=== PATIENT | male | born 1975 | race Caucasian/White ===

== ENCOUNTER 2017-03-24 21:45 | Inpatient (IN) | payer MEDICAID ==
[~2017-03-24] VITALS: Ht 175.3 cm; Wt 107.5 kg
[~2017-03-24 21:45] MED LIST: LORT7.5T3 PO; OMEP20TA OR; RANI150UDC PO
[2017-03-24 21:49] VITALS: BP 213/116; PULSE 109; RESP 20; TEMP 101.6; O2SAT 99
[2017-03-24] MEDS ORDERED: ONDANSETRON HCL 4 MG/2 ML VIAL IV PUSH ONE (22:15)
[2017-03-24] MEDS ORDERED: SODIUM CHLOR 0.9% 1000 ML INJ 1,000 ML IV ONE (22:15)
[2017-03-24] MEDS ORDERED: KETOROLAC TROMETHAMINE 30 MG/ML (IVP) VIAL IV PUSH ONE (22:15)
--- NOTE | 2017-03-24 22:57 | RADRPT ---
EXAM DATE/TIME: 03/24/2017 22:35 [facility] COMPARISON: No previous studies available for comparison. INDICATIONS : Patient complains of cough and shortness of breath. MEDICAL HISTORY : None. SURGICAL HISTORY : None. ENCOUNTER: Initial ACUITY: 3 days PAIN SCORE: 0/10 LOCATION: chest FINDINGS: The lungs are symmetrically aerated. There is a 6 mm noncalcified nodule mid right lung. The heart is normal in size. Both hemidiaphragms are well delineated. CONCLUSION: 1. No infiltrate seen. 2. 6 mm noncalcified nodule in the mid right lung. Recommend further characterization with noncontra st CT. Nima Herrmann MD on March 24, 2017 at 22:54 Board Certified Radiologist. This report was verified electronically.
[2017-03-24 23:06] LABS: AUTOMATED NEUTROPHIL # 8.7 TH/MM3 (1.8-7.7); BASOPHIL % 0.2 % (0.0-2.0); HEMATOCRIT 40.9 % (39.0-51.0); LYMPH % 7.2 % (9.0-44.0); LYMPHOCYTE # 0.8 TH/MM3 (1.0-4.8); MEAN CELL VOLUME 82.4 FL (80.0-100.0); MEAN CORPUSCULAR HEMOGLOBIN 29.6 PG (27.0-34.0); MONO % 10.7 % (0.0-8.0); NEUT % 81.9 % (16.0-70.0); PLATELET COUNT 198 TH/MM3 (150-450); RED BLOOD COUNT 4.97 MIL/MM3 (4.50-5.90); RED CELL DISTRIBUTION WIDTH 13.3 % (11.6-17.2); WHITE BLOOD COUNT 10.6 TH/MM3 (4.0-11.0)
[2017-03-24 23:22] LABS: HEMO FLAGS AUTO DIFF
[2017-03-24 23:39] LABS: ALKALINE PHOSPHATASE 75 U/L (45-117); ALT (GPT) 54 U/L (12-78); TOTAL BILIRUBIN ADULT 1.4 MG/DL (0.2-1.0)
[2017-03-25] VITALS (13 sets, daily range): BP systolic 136–186; BP diastolic 82–105; PULSE 82–99; RESP 16–18; TEMP 99.1–101.9; O2SAT 94–99
--- NOTE | 2017-03-25 00:20 | RADRPT ---
EXAM DATE/TIME: 03/24/2017 23:39 [facility] COMPARISON: CHEST PA & LAT, March 24, 2017, 22:35. INDICATIONS : Patient with cough and shortness of breath and abnormal chest x-ray exam demonstrating a 6 mm no ncalcified nodule in the right midlung.. RADIATION DOSE: 8.60 CTDIvol (mGy) MEDICAL HISTORY : None SURGICAL HISTORY : None. ENCOUNTER: Initial ACUITY: 1 day PAIN SCALE: 0/10 LOCATION: Right chest TECHNIQUE: Volumetric scanning of the chest was performed. Using automated exposure control and adjustment of t he mA and/or kV according to patient size, radiation dose was kept as low as reasonably achievable to obtain optimal diagnostic quality images. DICOM format image data is available electronically for r eview and comparison. Follow-up recommendations for detected pulmonary nodules are based at a minimum on nodule size and pa tient risk factors according to Fleischner Society Guidelines. FINDINGS: LUNGS: There is no consolidation or pneumothorax. No concerning pulmonary nodule is visualized. The nodular density in the right lung seen on the plain film exam corresponds to a calcified granuloma in the ford perior segment of the right lower lobe. This measures approximately 6 mm in greatest diameter. There are no noncalcified nodules or masses. PLEURAE: There is no pleural thickening or pleural effusion. MEDIASTINUM: The heart and great vessels demonstrate no acute abnormality. There is no mediastinal or hilar lymph adenopathy. There are calcified right hilar lymph nodes. AXILLAE: Within normal limits. No lymphadenopathy. MUSCULOSKELETAL: Within normal limits for patient age. MISCELLANEOUS: The visualized upper abdominal organs demonstrate no acute abnormality. 2 subtle gallstones are noted . CONCLUSION: 1. The pulmonary nodules seen on the chest plain film corresponds to calcified granuloma. 2. No confluent infiltrates or effusions. 3. Cholelithiasis. Yoel Burns MD on March 25, 2017 at 0:15 Board Certified Radiologist. This report was verified electronically.
[2017-03-25 00:36] LABS: SCAN/DIFF AUTO DIFF CONFIRMED
[2017-03-25] MEDS ORDERED: CLINDAMYCIN 600 MG PREMIX 50 ML IV ONE (00:45)
[2017-03-25 00:50] LABS: BLOOD UREA NITROGEN 15 MG/DL (7-18); GLOMERULAR FILTRATION RATE 64 ML/MIN (>89)
[2017-03-25 00:51] LABS: ANION GAP 10 MEQ/L (5-15); AST (GOT) 61 U/L (15-37); BICARBONATE 23.2 MEQ/L (21.0-32.0); CHLORIDE 101 MEQ/L (98-107); POTASSIUM 3.1 MEQ/L (3.5-5.1); SODIUM (NA) 134 MEQ/L (136-145)
[2017-03-25] MEDS ORDERED: ACETAMINOPHEN 325 MG TAB PO ONE (01:30)
[2017-03-25] MEDS ORDERED: SODIUM CHLOR 0.9% 1000 ML INJ 1,000 ML IV ONE (01:30)
[2017-03-25] MEDS ORDERED: POTASSIUM CHLORIDE 10 MEQ CONTROLLED RELEASE TAB PO ONE (02:15)
--- NOTE | 2017-03-25 03:42 | PD ---
HPI Chief Complaint: GI Complaint Time Seen by Provider: 21:57 Travel History International Travel<30 days: No Contact w/Intl Traveler<30days: No Traveled to known affect area: No History of Present Illness HPI is a 41-year-old male comes in complaining of fevers, body aches, nausea and vomiting. He says this is been going on for the past few days. He also noticed that area of his leg is become red with streaks of redness of his leg. He says he cut his right leg while working on a car last week, and then reinjured it a few days later. He has not taken anything at home for his symptoms. He denies any cough or congestion. He denies any chest pain. He denies any abdominal pain. [facility] Past Medical History Medical History: Denies Significant Hx Tetanus Vaccination: > 5 Years Past Surgical History Other Surgery: Yes (NASAL POLYPS REMOVED) Social History Alcohol Use: Yes (RARE) Tobacco Use: No Substance Use: No Allergies-Medications (Allergen,Severity, Reaction): Coded Allergies: No Known Allergies (Unverified Allergy, Unknown, 03/25/17) Reported Meds & Prescriptions Reported Meds & Active Scripts Active No Active Prescriptions or Reported Medications Review of Systems Except as stated in HPI: all other systems reviewed are Neg General / Constitutional: Positive: Fever, Chills Eyes: No: Blurred Vision HENT: Positive: Headaches Cardiovascular: No: Chest Pain or Discomfort Respiratory: No: Shortness of Breath Gastrointestinal: Positive: Nausea, No: Abdominal Pain Genitourinary: No: Dysuria Musculoskeletal: Positive: Myalgias Skin: Positive Lesions, No Change in Pigmentation Neurologic: No: Weakness, Dizziness Physical Exam Narrative GENERAL: Awake and alert, in no acute distress. SKIN: Focused skin assessment warm/dry. 6 inch circular area of erythema and warmth to the right wright with streaks of erythema of the inner thigh. No abscess or drainage from the area. HEAD: Atraumatic. Normocephalic. EYES: Pupils equal and round. No scleral icterus. ENT: Mucous membranes pink and moist. NECK: Trachea midline. No JVD. CARDIOVASCULAR: Tachycardia. No murmur appreciated. RESPIRATORY: No accessory muscle use. Clear to auscultation. Breath sounds equal bilaterally. GASTROINTESTINAL: Abdomen soft, non-tender, nondistended. MUSCULOSKELETAL: No obvious deformities. No clubbing. No cyanosis. NEUROLOGICAL: Awake and alert. No obvious cranial nerve deficits. Motor grossly within normal limits. Normal speech. PSYCHIATRIC: Appropriate mood and affect; insight and judgment normal. Data Data Last Documented VS Vital Signs Date Time Temp Pulse Resp B/P (MAP) Pulse Ox O2 Delivery O2 Flow Rate FiO2 03/25/17 01:25 96 16 144/101 (115) 99 Room Air 03/25/17 01:25 101.9 Orders Orders Iv Access Insert/Monitor (03/24/17 22:09) Complete Blood Count With Diff (03/24/17 22:09) Comprehensive Metabolic Panel (03/24/17 22:09) Chest, Pa & Lat (03/24/17 ) Urinalysis - C+S If Indicated (03/24/17 22:09) Blood Culture (03/24/17 22:09) Lactic Acid (03/24/17 22:09) Sodium Chlor 0.9% 1000 Ml Inj (Ns 1000 M (03/24/17 22:15) Ondansetron Inj (Zofran Inj) (03/24/17 22:15) Ketorolac Inj (Toradol Inj) (03/24/17 22:15) Influenzae A/B Antigen (03/24/17 22:09) Ct Thorax/ Chest Wo Iv Contras (03/24/17 ) Clindamycin 600 Mg Premix (Cleocin 600 M (03/25/17 00:45) Acetaminophen (Tylenol) (03/25/17 01:30) Sodium Chlor 0.9% 1000 Ml Inj (Ns 1000 M (03/25/17 01:30) Potassium Chloride (Kcl) (03/25/17 09:00) Potassium Chloride (Kcl) (03/25/17 02:15) Admit Order (Ed Use Only) (03/25/17 ) Labs Laboratory Tests Test 03/24/17 00:00 03/24/17 22:25 Blood Urea Nitrogen 15 MG/DL Creatinine 1.24 MG/DL Random Glucose 191 MG/DL Total Protein 7.6 GM/DL Albumin 3.2 GM/DL Calcium Level 7.9 MG/DL Alkaline Phosphatase 75 U/L Aspartate Amino Transf (AST/SGOT) 61 U/L Alanine Aminotransferase (ALT/SGPT) 54 U/L Total Bilirubin 1.4 MG/DL Sodium Level 134 MEQ/L Potassium Level 3.1 MEQ/L Chloride Level 101 MEQ/L Carbon Dioxide Level 23.2 MEQ/L Anion Gap 10 MEQ/L Estimat Glomerular Filtration Rate 64 ML/MIN White Blood Count 10.6 TH/MM3 Red Blood Count 4.97 MIL/MM3 Hemoglobin 14.7 GM/DL Hematocrit 40.9 % Mean Corpuscular Volume 82.4 FL Mean Corpuscular Hemoglobin 29.6 PG Mean Corpuscular Hemoglobin Concent 36.0 % Red Cell Distribution Width 13.3 % Platelet Count 198 TH/MM3 Mean Platelet Volume 8.5 FL Neutrophils (%) (Auto) 81.9 % Lymphocytes (%) (Auto) 7.2 % Monocytes (%) (Auto) 10.7 % Eosinophils (%) (Auto) 0.0 % Basophils (%) (Auto) 0.2 % Neutrophils # (Auto) 8.7 TH/MM3 Lymphocytes # (Auto) 0.8 TH/MM3 Monocytes # (Auto) 1.1 TH/MM3 Eosinophils # (Auto) 0.0 TH/MM3 Basophils # (Auto) 0.0 TH/MM3 CBC Comment AUTO DIFF Differential Comment AUTO DIFF CONFIRMED Lactic Acid Level 1.2 mmol/L [facility] Medical Decision Making Medical Screen Exam Complete: Yes Emergency Medical Condition: Yes Medical Record Reviewed: Yes Differential Diagnosis Cellulitis versus influenza versus sepsis Narrative Course Patient is a 41-year-old male comes in complaining of body aches, fever, redness to his right leg. Exam shows area of erythema and warmth of the right wright. IV established, labs sent. Patient given IV fluids, Toradol, Zofran. Labs show a normal white blood cell count however he does have a left shift. Lactic acid is within normal limits. Chest x-ray performed showed a nodule, CT of his chest was recommended. This was performed showed no acute abnormalities. Patient remained tachycardic and febrile. Given another bolus of fluids as well as Tylenol. Given a dose of clindamycin. He'll be admitted for further management. Diagnosis Primary Impression: Cellulitis of right lower extremity Additional Impression: Sepsis Qualified Codes: A41.9 - Sepsis, unspecified organism Admitting Information Admitting Physician Requests: Admit Scripts No Active Prescriptions or Reported Meds Flor Rivers MD Mar 25, 2017 03:42
[2017-03-25] MEDS ORDERED: BISACODYL 10 MG SUPP RECTAL PRN (04:00)
[2017-03-25] MEDS ORDERED: LACTULOSE SYRUP 20 GM/30 ML CUP PO PRN (04:00)
[2017-03-25] MEDS ORDERED: MAGNESIUM HYDROXIDE SUSP 30 ML CUP PO PRN (04:00)
[2017-03-25] MEDS ORDERED: SODIUM CHLORIDE 0.9% FLUSH 10 ML FLUSH IV FLUSH PRN (04:00)
[2017-03-25] MEDS ORDERED: ACETAMINOPHEN/HYDROcodone 325 MG/5 MG TAB PO PRN (04:00)
[2017-03-25] MEDS ORDERED: SENNOSIDES 8.6 MG TAB PO PRN (04:00)
[2017-03-25] MEDS ORDERED: ONDANSETRON HCL 4 MG/2 ML VIAL IVP PRN (04:00)
[2017-03-25] MEDS ORDERED: CEFEPIME INJ 1,000 MG in SODIUM CHLORIDE 0.9% INJ 100 ML IV SCH (04:00)
[2017-03-25] MEDS ORDERED: MORPHINE SULFATE 4 MG/ML INJ IV PUSH PRN (04:00)
--- NOTE | 2017-03-25 04:24 | HHI.HP ---
[facility] [place] [facility] Primary Care Physician No Primary Care Physician Admission Diagnosis Sepsis, cellulitis Diagnoses: (1) Sepsis Diagnosis: Principal (2) Cellulitis of right lower extremity Diagnosis: Principal (3) Hypokalemia Diagnosis: Principal (4) Dehydration Diagnosis: Principal (5) HTN (hypertension) Diagnosis: Principal Travel History International Travel<30 Days: No Contact w/Intl Traveler <30 Da: No Traveled to Known Affected Are: No History of Present Illness This is a 41-year-old male with no significant PMH who presented to the ER with complaints of right lower extremity redness and pain for approx 1wk. 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 Reports subjective fever, chills in addition to occasional nausea/vomiting. On arrival, BP 13/116, HR 109 , O2 sat 99% on RA, Temp 101.6. BP currently 144/101, HR 96. WBC normal however elevated neutrophil count. K+ 3.1. GFR 64. CXR with no infiltrate noted, 6 mm noncalcified nodule mid right lung with recommendation for CT. CT Chest w/ calcified granuloma. S/p Blood Culture and Clinda IV in ER. Review of Systems Except as stated in HPI: all other systems reviewed are Neg ROS: 14 point review of systems otherwise negative. Past Family Social History Past Medical History PMH: None Past Surgical History PAST SURGICAL HISTORY: Nasal Polyps Allergies: Coded Allergies: No Known Allergies (Unverified Allergy, Unknown, 03/25/17) Family History PAST FAMILY HISTORY: Reviewed. No h/o DM or CAD Social History PAST SOCIAL HISTORY: Occasional alcohol. Negative for tobacco or drugs. Physical Exam Vital Signs Vital Signs Date Time Temp Pulse Resp B/P (MAP) Pulse Ox O2 Delivery O2 Flow Rate FiO2 03/25/17 01:25 96 16 144/101 (115) 99 Room Air 03/25/17 01:25 101.9 03/25/17 01:06 99 18 144/101 (115) 94 Room Air 03/24/17 21:49 101.6 109 20 213/116 (148) 99 Room Air Physical Exam PE: GENERAL: Middle-aged male in no acute distress. HEENT: PERRLA, EOMI. No scleral icterus or conjunctival pallor. No lid lag or facial droop. CARDIOVASCULAR: Regular rate and rhythm. No obvious murmurs to auscultation. No chest tenderness to palpation. RESPIRATORY: No obvious rhonchi or wheezing. Clear to auscultation. Breath sounds equal bilaterally. GASTROINTESTINAL: Abdomen soft, non-tender, nondistended. BS normal. MUSCULOSKELETAL: Extremities without clubbing, cyanosis, or edema. No obvious deformities. RLE w/ erythema, +streaking. Pulses intact NEUROLOGICAL: Awake, alert and oriented x4. No focal neurologic deficits. Moving both upper and lower extremities spontaneously. Laboratory Laboratory Tests Test 03/24/17 22:25 White Blood Count 10.6 Red Blood Count 4.97 Hemoglobin 14.7 Hematocrit 40.9 Mean Corpuscular Volume 82.4 Mean Corpuscular Hemoglobin 29.6 Mean Corpuscular Hemoglobin Concent 36.0 Red Cell Distribution Width 13.3 Platelet Count 198 Mean Platelet Volume 8.5 Neutrophils (%) (Auto) 81.9 Lymphocytes (%) (Auto) 7.2 Monocytes (%) (Auto) 10.7 Eosinophils (%) (Auto) 0.0 Basophils (%) (Auto) 0.2 Neutrophils # (Auto) 8.7 Lymphocytes # (Auto) 0.8 Monocytes # (Auto) 1.1 Eosinophils # (Auto) 0.0 Basophils # (Auto) 0.0 CBC Comment AUTO DIFF Differential Comment AUTO DIFF CONFIRMED Lactic Acid Level 1.2 Date/Time Source Procedure Growth Status 03/24/17 22:30 Blood Peripheral Aerobic Blood Culture Pending Received 03/24/17 22:30 Blood Peripheral Anaerobic Blood Culture Pending Received 03/24/17 22:30 Nasal Aspirate Influenza Types A,B Antigen (RICARDO) - Final NEGATIVE FOR FLU A AND B ANTIGEN.... Complete Result Diagram: 03/24/17222403/24/17 0000 Caprini VTE Risk Assessment Caprini VTE Risk Assessment: No/Low Risk (score <= 1) VTE [facility] Contraindication: LE injury/wound Caprini Risk Assessment Model Point Value = 1 Point Value = 2 Point Value = 3 Point Value = 5 Age 41-60 Minor surgery BMI > 25 kg/m2 Swollen legs Varicose veins or History of unexplained or recurrent spontaneous Oral contraceptives or hormone replacement Sepsis (< 1 month) Serious lung disease, including pneumonia (< 1 month) Abnormal pulmonary function Acute myocardial infarction Congestive heart failure (< 1 month) History of inflammatory bowel disease Medical patient at bed rest Age 61-74 Arthroscopic surgery Major open surgery (> 45 min) Laparoscopic surgery (> 45 min) Malignancy Confined to bed (> 72 hours) Immobilizing plaster cast Central venous access Age >= 75 History of VTE Family history of VTE Factor V Leiden Prothrombin [id number] Lupus anticoagulant Anticardiolipin antibodies Elevated serum homocysteine Heparin-induced thrombocytopenia Other congenital or acquired thrombophilia Stroke (< 1 month) Elective arthroplasty Hip, pelvis, or leg fracture Acute spinal cord injury (< 1 month) Prophylaxis Regimen Total Risk Factor Score Risk Level Prophylaxis Regimen 0-1 Low Early ambulation 2 Moderate Order ONE of the following: *Sequential Compression Device (SCD) *Heparin 5000 units SQ BID 3-4 Higher Order ONE of the following medications: *Heparin 5000 units SQ TID *Enoxaparin/Lovenox 40 mg SQ daily (WT < 150 kg, CrCl > 30 mL/min) *Enoxaparin/Lovenox 30 mg SQ daily (WT < 150 kg, CrCl > 10-29 mL/min) *Enoxaparin/Lovenox 30 mg SQ BID (WT < 150 kg, CrCl > 30 mL/min) AND/OR *Sequential Compression Device (SCD) 5 or more Highest Order ONE of the following medications: *Heparin 5000 units SQ TID (Preferred with Epidurals) *Enoxaparin/Lovenox 40 mg SQ daily (WT < 150 kg, CrCl > 30 mL/min) *Enoxaparin/Lovenox 30 mg SQ daily (WT < 150 kg, CrCl > 10-29 mL/min) *Enoxaparin/Lovenox 30 mg SQ BID (WT < 150 kg, CrCl > 30 mL/min) AND *Sequential Compression Device (SCD) Assessment and Plan Problem List: (1) Sepsis ICD Code: A41.9 - Sepsis, unspecified organism (2) Cellulitis of right lower extremity ICD Code: L03.115 - Cellulitis of right lower limb (3) Hypokalemia ICD Code: E87.6 - Hypokalemia (4) Dehydration ICD Code: E86.0 - Dehydration (5) HTN (hypertension) ICD Code: I10 - Essential (primary) hypertension Assessment and Plan A/P: 1. Sepsis: Temp 101.9, HR 109, Source-RLE Cellulitis. S/p Blood Cultures, Clinda IV in ER. Follow up cultures, continue w/ IV Abx. CXR w/ no infiltrate , small noncalcified nodule, CT Chest w/ calcified granuloma, images reviewed by me 2. RLE Cellulitis: s/p injury to right wright approx 1wk ago, now w/ progressive cellulitis, continue w/ treatment as above. 3. Hypokalemia: K+ 3.1, s/p replacement in ER. Will recheck and replace as needed. 4. Dehydration: GFR 64, BUN/Creatine normal. IVF for hydration, repeat labs in am. 5. HTN: BP 213/116, HR 106, likely compounded by pain and nausea/vomiting. BP currently 144/101, HR 96. Will monitor. 6. DVT Prophylaxis: Mechanical contraindication secondary to LE wound. 7. Social work for d/c planning as needed. 8. Case discussed w/ ER physician at length. Physician Certification 2 Midnight Certification Type: Admission for Inpatient Services Order for Inpatient Services The services are ordered in accordance with Medicare regulations or non- Medicare payer requirements, as applicable. In the case of services not specified as inpatient-only, they are appropriately provided as inpatient services in accordance with the 2-midnight benchmark. Estimated LOS (days): 2 days is the estimated time the patient will need to remain in the hospital, assuming treatment plan goals are met and no additional complications. Post-Hospital Plan: Not yet determined Zaira Singh MD Mar 25, 2017 04:24
[2017-03-25] MEDS: SODIUM CHLOR 0.9% 1000 ML INJ 1,000 ML IV SCH ×3 (04:32→23:54)
[2017-03-25] MEDS ORDERED: ENALAPRILAT 1.25 MG/ML VIAL IV PUSH ONE (05:15)
[2017-03-25] MEDS ORDERED: CLINDAMYCIN INJ 900 MG in SODIUM CHLORIDE 0.9% INJ 100 ML IV SCH (09:00)
[2017-03-25] MEDS ORDERED: POTASSIUM CHLORIDE 10 MEQ CONTROLLED RELEASE TAB PO SCH (09:00)
[2017-03-25] MEDS ORDERED: CLINDAMYCIN 900 MG PREMIX 50 ML IV SCH (09:00)
--- NOTE | 2017-03-25 09:18 | HHI.PR ---
Subjective Remarks fever with chills no diarrhea denies any chronic medical conditions states works in an [employer] an about a week ago- hit his wright with a stud- healed spontaneously and had a scab few days ago- he removed the scab and overnight developed rapidly progressive erythema "red streak on my leg" up the thigh with erythem extending to thigh denies any difficulty or pain of his foot or on weightbearing Objective Vitals Vital Signs Date Time Temp Pulse Resp B/P (MAP) Pulse Ox O2 Delivery O2 Flow Rate FiO2 03/25/17 08:24 99.6 89 18 156/100 (118) 95 03/25/17 06:37 89 03/25/17 05:56 137/82 (100) 03/25/17 05:15 100.0 91 18 179/102 (127) 95 03/25/17 04:55 03/25/17 04:28 93 169/100 (123) 99 Room Air 03/25/17 01:25 96 16 144/101 (115) 99 Room Air 03/25/17 01:25 101.9 03/25/17 01:06 99 18 144/101 (115) 94 Room Air 03/24/17 21:49 101.6 109 20 213/116 (148) 99 Room Air I/O 03/24/17 03/24/17 03/24/17 03/25/17 03/25/17 03/25/17 07:00 15:00 23:00 07:00 15:00 23:00 Intake Total 2050 ml Balance 2050 ml Intake IV Total 2050 ml # Voids 2 1 Result Diagram: 03/24/17 2225 03/24/17 0000 Imaging Last Impressions Chest X-Ray 03/24/17 0000 Signed Impressions: Service Date/Time: Friday, March 24, 2017 22:35 - CONCLUSION: 1. No infiltrate seen. 2. 6 mm noncalcified nodule in the mid right lung. Recommend further characterization with noncontrast CT. Nima Herrmann MD Chest CT 03/24/17 0000 Signed Impressions: Service Date/Time: Friday, March 24, 2017 23:39 - CONCLUSION: 1. The pulmonary nodules seen on the chest plain film corresponds to calcified granuloma. 2. No confluent infiltrates or effusions. 3. Cholelithiasis. Yoel Burns MD Objective Remarks awake and alert, oriented x 3 anicteric T man 101 overnight lungs clear regular rhythm HR- 102 abdomen- flabby soft Right LE with erythema entire leg with blotches of redness on the thigh area, no fluctuance or induration + small inguinal lymphadenopathy no induration felt on the thigh and leg very good ++ pulses moves right LE with good range of motion A/P Problem List: (1) Sepsis ICD Code: A41.9 - Sepsis, unspecified organism (2) Cellulitis of right lower extremity ICD Code: L03.115 - Cellulitis of right lower limb (3) Hypokalemia ICD Code: E87.6 - Hypokalemia (4) Dehydration ICD Code: E86.0 - Dehydration (5) HTN (hypertension) ICD Code: I10 - Essential (primary) hypertension Assessment and Plan 41 years old male- denies any chronic medical condition states works in an [employer] an about a week ago- hit his wright with a stud- healed spontaneously and had a scab few days ago- he removed the scab and overnight developed rapidly progressive erythema "red streak on my leg" up the thigh with erythema extending to thigh Sepsis secondary to Right LE cellulitis- extensive and rapidly progressive ff blood cultures DC Cefepime and Clindamycin Start on IV Vancomycin. with pharmacy consult for dosing Will get ID consult/involved early will monitor closely- no need for imaging studies for now HTN: BP 213/116, HR 106- on admission , likely compounded by pain and nausea/ vomiting. no history of hypertension-- but never really ff up with a regular MD- reviewed last 2011 ER visit and 2010 - elevated BP + family history of HTN start Dyazide po daily. Clonidine prn if confirmed diabetic- - may benefit from ROHIT CXR- reviewed no cardiomegaly, incidental lung nodule get a baseline EKG Hyperglycemia- RBS 192- likely underlying glucose intolerance or diabetic- obese check a hemoglobin A1C Incidental chest nodule/granuloma- asymptomatic. OP ff Hypokalemia: K+ 3.1, s/p replacement in ER. Will recheck now Dehydration: GFR 64, BUN/Creatine normal. IVF for hydration, repeat labs DVT Prophylaxis: Mechanical contraindication secondary to LE wound. Social work for d/c planning as needed. Lovenox for DVT prophylaxis Problem Qualifiers (1) Sepsis: Qualified Codes: A41.9 - Sepsis, unspecified organism Lacgypsyda,Alfea M. MD Mar 25, 2017 09:18
[2017-03-25] MEDS: DOCUSATE SODIUM 50 MG/SENNA 8.6 MG TAB PO SCH ×2 (09:27→21:15)
[2017-03-25] MEDS: SODIUM CHLORIDE 0.9% FLUSH 10 ML FLUSH IV FLUSH SCH ×2 (09:28→21:15)
[2017-03-25] MEDS ORDERED: Vancomycin Consult Pharmacy 1 EA OTHER SCH (09:30)
[2017-03-25] MEDS ORDERED: VANCOMYCIN INJ 1,500 MG in SODIUM CHLORID 0.9% 500 ML INJ 500 ML IV ONE (11:00)
[2017-03-25 11:13] LABS: RED BLOOD COUNT 4.32 MIL/MM3 (4.50-5.90); WHITE BLOOD COUNT 6.8 TH/MM3 (4.0-11.0)
[2017-03-25 11:14] LABS: AUTOMATED NEUTROPHIL # 5.1 TH/MM3 (1.8-7.7); BASOPHIL % 0.2 % (0.0-2.0); HEMATOCRIT 35.5 % (39.0-51.0); HEMO FLAGS DIFF FINAL; LYMPH % 12.6 % (9.0-44.0); LYMPHOCYTE # 0.9 TH/MM3 (1.0-4.8); MEAN CELL VOLUME 82.2 FL (80.0-100.0); MEAN CORPUSCULAR HEMOGLOBIN 28.9 PG (27.0-34.0); MEAN CORPUSCULAR HGB CONC 35.2 % (32.0-36.0); MONO % 12.5 % (0.0-8.0); NEUT % 74.7 % (16.0-70.0); PLATELET COUNT 110 TH/MM3 (150-450); RED CELL DISTRIBUTION WIDTH 13.7 % (11.6-17.2)
[2017-03-25] MEDS: ENOXAPARIN SODIUM 40 MG/0.4 ML SYRINGE SQ SCH (11:29)
[2017-03-25 11:30] LABS: HEMOGLOBIN A1a 2.2 %; HEMOGLOBIN A1b 0.8 %; HEMOGLOBIN Ao 81.7 %; HEMOGLOBIN LA1C 2.4 %
[2017-03-25 11:33] LABS: BICARBONATE 24.4 MEQ/L (21.0-32.0); POTASSIUM 3.4 MEQ/L (3.5-5.1)
[2017-03-25] MEDS ORDERED: POTASSIUM BICARBONATE 25 MEQ EFFERVESCENT TAB PO ONE (13:00)
[2017-03-25] MEDS: TRIAMTERENE/HCTZ 37.5 MG/25 MG CAP PO SCH (14:44)
--- NOTE | 2017-03-25 15:05 | MB ---
cc: JOSIAS BALTAZAR MD DATE OF CONSULTATION: 03/25/[address] Tripathi. REASON FOR CONSULTATION Sepsis secondary to right lower extremity cellulitis, rapidly progressive. Antibiotic recommendation. HISTORY OF PRESENT ILLNESS This is a 41-year-old white male who presented to the emergency department yesterday with body aches, nausea, vomiting and fevers. The patient reports that he had a scab on his right anterior wright and removed the scab and after that he developed red streaks beginning around the area of the scab and going up his leg on the right side. The patient reportedly struck his right leg on the calf while doing some work on [employer]. That was prior to the scab formation. He did not seek any medical attention initially until the redness occurred after he removed the scab. The patient had elevated temperature of 101.9 degrees and the white blood cell count was normal. He denies any pain in the right wright. He states to me that he had some sweats previously. The patient had a workup including chest x-ray which showed no infiltrates. There was a 6 mm noncalcified nodule noted and a CT scan was performed and it appears to be consistent with a granuloma. PAST MEDICAL HISTORY Unremarkable. PAST SURGICAL HISTORY Removal of nasal polyps. ALLERGIES NO KNOWN DRUG ALLERGIES. MEDICATIONS 1. Vancomycin. 2. Dyazide. 3. Lovenox. 4. Isela-Colace. 5. [place] 5. SOCIAL HISTORY No tobacco. Rare alcohol. No illicit drugs. FAMILY HISTORY Noncontributory. REVIEW OF SYSTEMS Negative on 10-point review, except for that mentioned in the history of present illness. PHYSICAL EXAMINATION GENERAL: This is a well-developed male who is in no acute distress. He is well-nourished. VITAL SIGNS: Include temperature 99.1, BP 169/105, heart rate 84, respirations 18. HEENT: Head is atraumatic. Extraocular movements grossly intact, pupils reactive to light. No icterus. Oropharynx moist mucosa without lesions. NECK: Supple without adenopathy. LUNGS: Clear, decreased breath sounds bilateral. HEART: Regular, S1-S2 without murmurs, rubs or gallops. ABDOMEN: Bowel sounds present, soft, nontender. RECTAL: Not performed. EXTREMITIES: The right anterior wright has a tiny scabbed lesion and there is some red purpuric discoloration around the scab area. There is some red nonconfluent streaked erythematous areas of the thigh, all the way up to the mid thigh. The remaining extremities have no clubbing, cyanosis or edema. SKIN: There is erythematous confluent hue involving the back. This is not present at the trunk or chest. NEURO: No gross focal findings. PSYCHIATRIC: The patient is calm and cooperative. LABORATORY DATA WBC 6.8, platelet count 110, hemoglobin 12.5, 74% neutrophils, creatinine 1.05, BUN 15, sodium 136, AST 61, ALT 54. IMPRESSION 1. Cellulitis of the right lower extremity. Patient is status post mild trauma to the anterior wright and subsequent development of cellulitis after removing a scab from the anterior tibia. 2. Fever and body aches and pains on admission. However, normal white blood cell count. The patient likely to have infection due to streptococcal bacteria given the rapid streaking up the leg. RECOMMENDATIONS 1. Continue vancomycin. 2. Monitor blood cultures. 3. Follow the response of the leg to antibiotic and if it is continuing to improve and he is afebrile, consideration can be given to switching him to oral antibiotic treatment. Thank you for this consultation. The patient's progress will be follow along with you and further recommendations will be made upon followup if necessary. Josias Baltazar MD FD/ELYSIA /1:40 PM /2:39 PM
[2017-03-25] MEDS ORDERED: GLUCAGON 1 MG/ML VIAL OTHER PRN (15:15)
[2017-03-25] MEDS ORDERED: DEXTROSE 50% IN WATER 50 ML VIAL(D50) IV PUSH PRN (15:15)
[2017-03-25] MEDS ORDERED: GLUCAGON 1 MG/ML VIAL IM PRN (15:15)
[2017-03-25] MEDS: ACETAMINOPHEN 325 MG TAB PO PRN (16:21)
[2017-03-25] MEDS: cloNIDine HCL 0.1 MG TAB PO PRN ×2 (16:21→23:55)
[2017-03-25] MEDS: INSULIN NovoLIN REGULAR SUPPLEMENTAL SCALE SQ SCH ×2 (16:32→21:20)
--- NOTE | 2017-03-25 21:03 | EKG ---
Date Performed: 03/25/2017 Time Performed: 15:11:53 PTAGE: 41 years EKG: Sinus rhythm MINIMAL VOLTAGE CRITERIA FOR LVH, CONSIDER NORMAL VARIANT PROBABLE INFERIOR MYOCARDIAL INFARCTION , OF INDETERMINATE AGE ABNORMAL ECG PREVIOUS TRACING : 07/10/2011 02.36 No change from previous tracing noted, inferior infarct pat tern and T wave inversion are now more pronounced, minimal voltage criteria for LVH is now evident. DOCTOR: sAhok Loyola Interpretating Date/Time 03/25/2017 21:01:06
[2017-03-25] MEDS: VANCOMYCIN 1,500 MG/NS 500 ML IV SCH ×2 (21:15)
[2017-03-26] VITALS (9 sets, daily range): BP systolic 130–189; BP diastolic 80–118; PULSE 18–107; RESP 18–20; TEMP 98.3–100.3; O2SAT 96–99
[2017-03-26] MEDS: ACETAMINOPHEN 325 MG TAB PO PRN (04:06)
[2017-03-26 07:11] LABS: AUTOMATED NEUTROPHIL # 6.5 TH/MM3 (1.8-7.7); BASOPHIL % 0.4 % (0.0-2.0); EOSINOPHIL % 0.3 % (0.0-4.0); HEMATOCRIT 39.3 % (39.0-51.0); HEMO FLAGS DIFF FINAL; LYMPH % 14.7 % (9.0-44.0); LYMPHOCYTE # 1.3 TH/MM3 (1.0-4.8); MEAN CELL VOLUME 82.8 FL (80.0-100.0); MEAN CORPUSCULAR HEMOGLOBIN 28.5 PG (27.0-34.0); MEAN CORPUSCULAR HGB CONC 34.5 % (32.0-36.0); MONO % 11.4 % (0.0-8.0); NEUT % 73.2 % (16.0-70.0); PLATELET COUNT 150 TH/MM3 (150-450); RED BLOOD COUNT 4.75 MIL/MM3 (4.50-5.90); RED CELL DISTRIBUTION WIDTH 13.5 % (11.6-17.2); WHITE BLOOD COUNT 8.9 TH/MM3 (4.0-11.0)
[2017-03-26 07:54] LABS: ALKALINE PHOSPHATASE 89 U/L (45-117); ALT (GPT) 71 U/L (12-78); ANION GAP 9 MEQ/L (5-15); AST (GOT) 70 U/L (15-37); BICARBONATE 23.1 MEQ/L (21.0-32.0); BLOOD UREA NITROGEN 14 MG/DL (7-18); CHLORIDE 102 MEQ/L (98-107); GLOMERULAR FILTRATION RATE 71 ML/MIN (>89); HDL CHOLESTEROL 25.6 MG/DL (40.0-60.0); LDL CHOLESTEROL 97 MG/DL (0-99); POTASSIUM 3.4 MEQ/L (3.5-5.1); SODIUM (NA) 134 MEQ/L (136-145)
[2017-03-26] MEDS: TRIAMTERENE/HCTZ 37.5 MG/25 MG CAP PO SCH (09:45)
[2017-03-26] MEDS: DOCUSATE SODIUM 50 MG/SENNA 8.6 MG TAB PO SCH ×2 (09:45→21:00)
[2017-03-26] MEDS: INSULIN NovoLIN REGULAR SUPPLEMENTAL SCALE SQ SCH ×4 (09:46→21:00)
[2017-03-26] MEDS: SODIUM CHLORIDE 0.9% FLUSH 10 ML FLUSH IV FLUSH SCH ×2 (09:46→21:00)
[2017-03-26] MEDS: ENOXAPARIN SODIUM 40 MG/0.4 ML SYRINGE SQ SCH (09:46)
[2017-03-26] MEDS: SODIUM CHLOR 0.9% 1000 ML INJ 1,000 ML IV SCH ×2 (10:12→22:25)
[2017-03-26] MEDS ORDERED: PHARMACY ORDERED LAB ONE (10:45)
[2017-03-26] MEDS: VANCOMYCIN 1,500 MG/NS 500 ML IV SCH ×2 (11:09)
--- NOTE | 2017-03-26 11:32 | HHI.IDPN ---
Note Infectious Disease Note Patient has blisters forming At the r. tibia. No change in erythematous streaks at the R. thigh. Denies chills. Afebrile. Presented to the emergency department with body aches, nausea, vomiting and fevers. The patient reports that he had a scab on his right anterior wright and removed the scab and after that he developed red streaks beginning around the area of the scab and going up his leg on the right side. PAST MEDICAL HISTORY Unremarkable. PAST SURGICAL HISTORY Removal of nasal polyps. ALLERGIES NO KNOWN DRUG ALLERGIES. ANTIBIOTICS: Vancomycin. Current Medications Medications (Trade) Dose Ordered Sig/Feliberto Route PRN Reason Start Time Stop Time Status Last Admin Dose Admin Sodium Chloride 1,000 ml @ 100 mls/hr Q10H IV 03/25/17 03:54 03/25/17 23:54 Sodium Chloride (NS Flush) 2 ml UNSCH PRN IV FLUSH FLUSH AFTER USING IV ACCESS 03/25/17 04:00 Sodium Chloride (NS Flush) 2 ml BID IV FLUSH 03/25/17 09:00 03/26/17 09:46 Ondansetron HCl (Zofran Inj) 4 mg Q6H PRN IVP NAUSEA OR VOMITING 03/25/17 04:00 Acetaminophen (Tylenol) 650 mg Q6H PRN PO FEVER/PAIN SCALE 1 TO 2 03/25/17 04:00 03/26/17 04:06 Acetaminophen/ Hydrocodone Bitart (Prospect 5-325 Mg) 1 tab Q4H PRN PO PAIN SCALE 3 TO 5 03/25/17 04:00 03/25/17 05:25 Morphine Sulfate (Morphine Inj) 2 mg Q3H PRN IV PUSH Pain 6-10 03/25/17 04:00 Senna/Docusate Sodium (Isela-Colace) 1 tab BID PO 03/25/17 09:00 03/26/17 09:45 Magnesium Hydroxide (Milk Of Magnesia Liq) 30 ml Q12H PRN PO Mild constipation 03/25/17 04:00 Sennosides (Senokot) 17.2 mg Q12H PRN PO Moderate constipation 03/25/17 04:00 Bisacodyl (Dulcolax Supp) 10 mg DAILY PRN RECTAL SEVERE CONSITIPATION/ IF NPO 03/25/17 04:00 Lactulose (Lactulose Liq) 30 ml DAILY PRN PO SEVERE CONSITIPATION/IF PO 03/25/17 04:00 Pharmacy Profile Note 0 ml @ 0 mls/hr UNSCH OTHER 03/25/17 09:30 Clonidine (Catapres) 0.1 mg Q6H PRN PO SBP>160, DBP>90 03/25/17 09:45 03/25/17 23:55 Enoxaparin Sodium (Lovenox Inj) 40 mg Q24H SQ 03/25/17 10:00 03/26/17 09:46 Vancomycin HCl 1500 mg/Sodium Chloride 515 ml @ 257.5 mls/ hr Q12H IV 03/25/17 22:00 03/25/17 21:15 Triamterene/HCTZ (Dyazide 37.5-25 Mg) 1 cap DAILY PO 03/25/17 12:45 03/26/17 09:45 Dextrose (D50w (Vial) Inj) 50 ml UNSCH PRN IV PUSH HYPOGLYCEMIA-SEE COMMENTS 03/25/17 15:15 Glucagon (Glucagon Inj) 1 mg UNSCH PRN OTHER HYPOGLYCEMIA-SEE COMMENTS 03/25/17 15:15 Insulin Human Regular (NovoLIN R SUPPLEMENTAL SCALE) 1 ACHS SLIDING SCALE SQ 03/25/17 17:00 03/26/17 09:46 Dextrose (D50w (Vial) Inj) 50 ml UNSCH PRN IV PUSH HYPOGLYCEMIA-SEE COMMENTS 03/25/17 15:15 Glucagon (Glucagon Inj) 1 mg STAT PRN IM HYPOGLYCEMIA-SEE COMMENTS 03/25/17 15:15 Potassium Chloride (KCl) 30 meq ONCE ONCE PO 03/26/17 12:00 03/26/17 12:01 SOCIAL HISTORY No tobacco. Rare alcohol. No illicit drugs. FAMILY HISTORY Noncontributory. OBJECTIVE: Vital Signs Date Time Temp Pulse Resp B/P (MAP) Pulse Ox O2 Delivery O2 Flow Rate FiO2 03/26/17 08:00 98.3 78 20 171/107 (128) 98 03/26/17 05:29 98.3 156/86 (109) 03/26/17 04:00 100.3 91 18 186/115 (138) 96 03/26/17 00:29 99.0 18 18 177/89 (118) 99 03/25/17 20:30 100.2 82 18 136/103 (114) 97 03/25/17 20:00 86 03/25/17 17:56 101.0 175/87 (116) 03/25/17 16:15 101.1 94 18 186/105 (132) 97 03/25/17 12:13 99.1 84 18 169/105 (126) 97 Laboratory Tests Test 03/24/17 22:25 03/25/17 10:46 03/26/17 05:56 White Blood Count 10.6 TH/MM3 6.8 TH/MM3 8.9 TH/MM3 Red Blood Count 4.97 MIL/MM3 4.32 MIL/MM3 4.75 MIL/MM3 Hemoglobin 14.7 GM/DL 12.5 GM/DL 13.6 GM/DL Hematocrit 40.9 % 35.5 % 39.3 % Mean Corpuscular Volume 82.4 FL 82.2 FL 82.8 FL Mean Corpuscular Hemoglobin 29.6 PG 28.9 PG 28.5 PG Mean Corpuscular Hemoglobin Concent 36.0 % 35.2 % 34.5 % Red Cell Distribution Width 13.3 % 13.7 % 13.5 % Platelet Count 198 TH/MM3 110 TH/MM3 150 TH/MM3 Mean Platelet Volume 8.5 FL 6.9 FL 7.6 FL Neutrophils (%) (Auto) 81.9 % 74.7 % 73.2 % Lymphocytes (%) (Auto) 7.2 % 12.6 % 14.7 % Monocytes (%) (Auto) 10.7 % 12.5 % 11.4 % Eosinophils (%) (Auto) 0.0 % 0.0 % 0.3 % Basophils (%) (Auto) 0.2 % 0.2 % 0.4 % Neutrophils # (Auto) 8.7 TH/MM3 5.1 TH/MM3 6.5 TH/MM3 Lymphocytes # (Auto) 0.8 TH/MM3 0.9 TH/MM3 1.3 TH/MM3 Monocytes # (Auto) 1.1 TH/MM3 0.8 TH/MM3 1.0 TH/MM3 Eosinophils # (Auto) 0.0 TH/MM3 0.0 TH/MM3 0.0 TH/MM3 Basophils # (Auto) 0.0 TH/MM3 0.0 TH/MM3 0.0 TH/MM3 CBC Comment AUTO DIFF DIFF FINAL DIFF FINAL Differential Comment AUTO DIFF CONFIRMED Laboratory Tests Test 03/24/17 22:25 03/25/17 10:46 03/26/17 05:56 Lactic Acid Level 1.2 mmol/L Blood Urea Nitrogen 15 MG/DL 14 MG/DL Creatinine 1.05 MG/DL 1.13 MG/DL Random Glucose 211 MG/DL 190 MG/DL Calcium Level 7.6 MG/DL 8.4 MG/DL Sodium Level 136 MEQ/L 134 MEQ/L Potassium Level 3.4 MEQ/L 3.4 MEQ/L Chloride Level 103 MEQ/L 102 MEQ/L Carbon Dioxide Level 24.4 MEQ/L 23.1 MEQ/L Anion Gap 9 MEQ/L 9 MEQ/L Estimat Glomerular Filtration Rate 77 ML/MIN 71 ML/MIN Hemoglobin A1c 7.6 % Total Protein 7.1 GM/DL Albumin 2.9 GM/DL Alkaline Phosphatase 89 U/L Aspartate Amino Transf (AST/SGOT) 70 U/L Alanine Aminotransferase (ALT/SGPT) 71 U/L Total Bilirubin 1.0 MG/DL Triglycerides Level 182 MG/DL Cholesterol Level 159 MG/DL LDL Cholesterol 97 MG/DL HDL Cholesterol 25.6 MG/DL Cholesterol/HDL Ratio 6.21 RATIO Microbiology Date/Time Source Procedure Growth Status 03/24/17 22:30 Blood Peripheral Aerobic Blood Culture - Preliminary NO GROWTH IN 2 DAYS Resulted 03/24/17 22:30 Blood Peripheral Anaerobic Blood Culture - Preliminary NO GROWTH IN 2 DAYS Resulted 03/24/17 22:25 Blood Peripheral Aerobic Blood Culture - Preliminary NO GROWTH IN 2 DAYS Resulted 03/24/17 22:25 Blood Peripheral Anaerobic Blood Culture - Preliminary NO GROWTH IN 2 DAYS Resulted 03/24/17 22:30 Nasal Aspirate Influenza Types A,B Antigen (RICARDO) - Final NEGATIVE FOR FLU A AND B ANTIGEN.... Complete PHYSICAL EXAMINATION GENERAL: No acute distress. HEENT: Head is atraumatic. Extraocular movements grossly intact, pupils reactive to light. No icterus. Oropharynx moist mucosa without lesions. NECK: Supple without adenopathy. LUNGS: Clear, decreased breath sounds. HEART: Regular, S1-S2 without murmurs, rubs or gallops. ABDOMEN: Bowel sounds present, soft, nontender. EXTREMITIES: The right anterior wright has a tiny scabbed lesion and there is some red purpuric discoloration around the scab area. There is some red nonconfluent streaked erythematous areas of the thigh, all the way up to the mid thigh. (+) blisters at the R. tibia. NEURO: No gross focal findings. PSYCHIATRIC: Calm and cooperative. IMPRESSION 1. Cellulitis of the right lower extremity. Patient is status post mild trauma to the anterior wright and subsequent development of cellulitis after removing a scab from the anterior tibia. 2. Fever and body aches and pains on admission. However, normal white blood cell count. The patient likely to have infection due to streptococcal bacteria given the rapid streaking up the leg. RECOMMENDATIONS 1. Stop vancomycin. 2. Begin Ancef IV. 3. Monitor blood cultures. 4. Follow clinical response. Dheeraj Quintero MD Mar 26, 2017 11:32
[2017-03-26] MEDS ORDERED: POTASSIUM CHLORIDE 10 MEQ CONTROLLED RELEASE TAB PO ONE (12:00)
--- NOTE | 2017-03-26 12:01 | HHI.PR ---
Subjective Remarks t max 99 no fever or chills feeling better Objective Vitals Vital Signs Date Time Temp Pulse Resp B/P (MAP) Pulse Ox O2 Delivery O2 Flow Rate FiO2 03/26/17 08:00 98.3 78 20 171/107 (128) 98 03/26/17 05:29 98.3 156/86 (109) 03/26/17 04:00 100.3 91 18 186/115 (138) 96 03/26/17 00:29 99.0 18 18 177/89 (118) 99 03/25/17 20:30 100.2 82 18 136/103 (114) 97 03/25/17 20:00 86 03/25/17 17:56 101.0 175/87 (116) 03/25/17 16:15 101.1 94 18 186/105 (132) 97 03/25/17 12:13 99.1 84 18 169/105 (126) 97 I/O 03/25/17 03/25/17 03/25/17 03/26/17 03/26/17 03/26/17 07:00 15:00 23:00 07:00 15:00 23:00 Intake Total 2050 ml 980 ml 1100 ml 505 ml Balance 2050 ml 980 ml 1100 ml 505 ml Intake Oral 480 ml IV Total 2050 ml 500 ml 1100 ml 505 ml # Voids 2 2 Result Diagram: 03/26/17 0556 03/26/17 0556 Imaging Last Impressions Chest X-Ray 03/24/17 0000 Signed Impressions: Service Date/Time: Friday, March 24, 2017 22:35 - CONCLUSION: 1. No infiltrate seen. 2. 6 mm noncalcified nodule in the mid right lung. Recommend further characterization with noncontrast CT. Nima Herrmann MD Chest CT 03/24/17 0000 Signed Impressions: Service Date/Time: Friday, March 24, 2017 23:39 - CONCLUSION: 1. The pulmonary nodules seen on the chest plain film corresponds to calcified granuloma. 2. No confluent infiltrates or effusions. 3. Cholelithiasis. Yoel Burns MD Objective Remarks awake and alert, oriented x 3 anicteric lungs clear regular rhythm HR- 82 abdomen- flabby soft Right LE - marked decrease in erythema and swelling today + small inguinal lymphadenopathy no induration felt on the thigh and leg very good ++ pulses moves right LE with good range of motion A/P Problem List: (1) Sepsis ICD Code: A41.9 - Sepsis, unspecified organism (2) Cellulitis of right lower extremity ICD Code: L03.115 - Cellulitis of right lower limb (3) Hypokalemia ICD Code: E87.6 - Hypokalemia (4) Dehydration ICD Code: E86.0 - Dehydration (5) HTN (hypertension) ICD Code: I10 - Essential (primary) hypertension Assessment and Plan 41 years old male- denies any chronic medical condition states works in an [employer] an about a week ago- hit his wright with a stud- healed spontaneously and had a scab few days ago- he removed the scab and overnight developed rapidly progressive erythema "red streak on my leg" up the thigh with erythema extending to thigh Sepsis secondary to Right LE cellulitis- extensive and rapidly progressive - clinically improving ff blood cultures- negative so far changed to IV Ancef 03/26 ID ff along with us HTN: BP 213/116, HR 106- on admission - better no history of hypertension-- but never really ff up with a regular MD- reviewed last 2011 ER visit and 2011 - elevated BP + family history of HTN started ROHIT- patient is a diabetic- Increase Enalapril 20 mg po bid HCTZ 25 mg po daily CXR- reviewed no cardiomegaly, incidental lung nodule EKG unremarkable Hyperglycemia- RBS [id number] 7.6 diabetes education/nutrtion teaching done start metformin 500 mg bid- better readings Incidental chest nodule/granuloma- asymptomatic. OP ff Hypokalemia: improved Dehydration: GFR 64, BUN/Creatine normal. resolved DVT Prophylaxis: Mechanical contraindication secondary to LE wound. Social work for d/c planning as needed. Lovenox for DVT prophylaxis up and ambulating CM will assist with DC meds on discharge Problem Qualifiers (1) Sepsis: Qualified Codes: A41.9 - Sepsis, unspecified organism Alta Tripathi MD Mar 26, 2017 12:01
[2017-03-26] MEDS: ceFAZolin 2 GM PREMIX 50 ML IV SCH ×2 (12:44→22:23)
[2017-03-26] MEDS: metFORMIN HCL 500 MG TAB PO SCH ×2 (12:52→18:15)
[2017-03-26] MEDS: cloNIDine HCL 0.1 MG TAB PO PRN (13:03)
[2017-03-26] MEDS: ENALAPRIL MALEATE 10 MG TAB PO SCH (22:24)
[2017-03-27] VITALS (7 sets, daily range): BP systolic 138–170; BP diastolic 90–100; PULSE 65–88; RESP 18–20; TEMP 97.6–99.1; O2SAT 97–100
[2017-03-27] MEDS: ceFAZolin 2 GM PREMIX 50 ML IV SCH ×3 (04:33→20:18)
[2017-03-27] MEDS: SODIUM CHLOR 0.9% 1000 ML INJ 1,000 ML IV SCH ×2 (08:05→11:50)
[2017-03-27 08:56] LABS: BICARBONATE 23.3 MEQ/L (21.0-32.0); POTASSIUM 3.9 MEQ/L (3.5-5.1)
[2017-03-27] MEDS: SODIUM CHLORIDE 0.9% FLUSH 10 ML FLUSH IV FLUSH SCH ×2 (09:00→20:19)
[2017-03-27] MEDS: INSULIN NovoLIN REGULAR SUPPLEMENTAL SCALE SQ SCH ×4 (09:32→21:00)
[2017-03-27] MEDS: DOCUSATE SODIUM 50 MG/SENNA 8.6 MG TAB PO SCH ×2 (09:33→20:18)
[2017-03-27] MEDS: ENALAPRIL MALEATE 10 MG TAB PO SCH ×2 (09:33→20:18)
[2017-03-27] MEDS: metFORMIN HCL 500 MG TAB PO SCH ×2 (09:33→18:14)
[2017-03-27] MEDS: HYDROCHLOROTHIAZIDE 25 MG TAB PO SCH (09:34)
[2017-03-27] MEDS: ENOXAPARIN SODIUM 40 MG/0.4 ML SYRINGE SQ SCH (09:38)
[2017-03-27] MEDS: cloNIDine HCL 0.1 MG TAB PO PRN ×2 (11:49→18:14)
--- NOTE | 2017-03-27 12:40 | HHI.IDPN ---
Note Infectious Disease Note Patient notes sweats. No change in erythematous streaks at the R. thigh. Denies chills. Afebrile. Non fluid filled blisters at the r. tibia. Presented to the emergency department with body aches, nausea, vomiting and fevers. The patient reports that he had a scab on his right anterior wright and removed the scab and after that he developed red streaks beginning around the area of the scab and going up his leg on the right side. ALLERGIES NO KNOWN DRUG ALLERGIES. ANTIBIOTICS: Cefazolin. SOCIAL HISTORY No tobacco. Rare alcohol. No illicit drugs. FAMILY HISTORY Noncontributory. OBJECTIVE: Vital Signs Date Time Temp Pulse Resp B/P (MAP) Pulse Ox O2 Delivery O2 Flow Rate FiO2 03/27/17 08:00 98.6 80 18 150/100 (117) 98 Manual Cuff/Auscultation 03/27/17 00:00 99.1 81 20 138/92 (107) 97 03/26/17 20:20 107 03/26/17 20:00 99.9 87 20 130/80 (97) 97 03/26/17 18:31 150/90 (110) 03/26/17 16:00 99.4 87 20 166/116 (133) 99 Laboratory Tests Test 03/26/17 05:56 White Blood Count 8.9 TH/MM3 Red Blood Count 4.75 MIL/MM3 Hemoglobin 13.6 GM/DL Hematocrit 39.3 % Mean Corpuscular Volume 82.8 FL Mean Corpuscular Hemoglobin 28.5 PG Mean Corpuscular Hemoglobin Concent 34.5 % Red Cell Distribution Width 13.5 % Platelet Count 150 TH/MM3 Mean Platelet Volume 7.6 FL Neutrophils (%) (Auto) 73.2 % Lymphocytes (%) (Auto) 14.7 % Monocytes (%) (Auto) 11.4 % Eosinophils (%) (Auto) 0.3 % Basophils (%) (Auto) 0.4 % Neutrophils # (Auto) 6.5 TH/MM3 Lymphocytes # (Auto) 1.3 TH/MM3 Monocytes # (Auto) 1.0 TH/MM3 Eosinophils # (Auto) 0.0 TH/MM3 Basophils # (Auto) 0.0 TH/MM3 CBC Comment DIFF FINAL Differential Comment Laboratory Tests Test 03/26/17 05:56 03/27/17 07:29 Blood Urea Nitrogen 14 MG/DL 14 MG/DL Creatinine 1.13 MG/DL 0.85 MG/DL Random Glucose 190 MG/DL 110 MG/DL Total Protein 7.1 GM/DL Albumin 2.9 GM/DL Calcium Level 8.4 MG/DL 8.1 MG/DL Alkaline Phosphatase 89 U/L Aspartate Amino Transf (AST/SGOT) 70 U/L Alanine Aminotransferase (ALT/SGPT) 71 U/L Total Bilirubin 1.0 MG/DL Sodium Level 134 MEQ/L 137 MEQ/L Potassium Level 3.4 MEQ/L 3.9 MEQ/L Chloride Level 102 MEQ/L 104 MEQ/L Carbon Dioxide Level 23.1 MEQ/L 23.3 MEQ/L Anion Gap 9 MEQ/L 10 MEQ/L Estimat Glomerular Filtration Rate 71 ML/MIN 99 ML/MIN Triglycerides Level 182 MG/DL Cholesterol Level 159 MG/DL LDL Cholesterol 97 MG/DL HDL Cholesterol 25.6 MG/DL Cholesterol/HDL Ratio 6.21 RATIO Microbiology Date/Time Source Procedure Growth Status 03/24/17 22:30 Blood Peripheral Aerobic Blood Culture - Preliminary NO GROWTH IN 3 DAYS Resulted 03/24/17 22:30 Blood Peripheral Anaerobic Blood Culture - Preliminary NO GROWTH IN 3 DAYS Resulted 03/24/17 22:25 Blood Peripheral Aerobic Blood Culture - Preliminary NO GROWTH IN 3 DAYS Resulted 03/24/17 22:25 Blood Peripheral Anaerobic Blood Culture - Preliminary NO GROWTH IN 3 DAYS Resulted 03/24/17 22:30 Nasal Aspirate Influenza Types A,B Antigen (RICARDO) - Final NEGATIVE FOR FLU A AND B ANTIGEN.... Complete PHYSICAL EXAMINATION GENERAL: No acute distress. HEENT: No icterus. Oropharynx moist mucosa without lesions. NECK: Supple without adenopathy. LUNGS: Clear breath sounds. HEART: Regular, S1-S2 without murmurs, rubs or gallops. EXTREMITIES: Right anterior with scabbed lesion and red purpuric discoloration around the scab area. Nonconfluent streaked erythematous areas at the thigh, all the way up to the mid thigh is unchanged. (+) blisters at the R. tibia. NEURO: No gross focal findings. PSYCHIATRIC: Calm and cooperative. IMPRESSION 1. Cellulitis of the right lower extremity. Mild improvement. 2. Fever and body aches and pains on admission. The patient likely to have infection due to streptococcal bacteria given the rapid streaking up the leg. RECOMMENDATIONS Continue the Ancef IV today. If improving tomorrow, consideration can be given to discharge on PO Keflex. Dheeraj Quintero MD Mar 27, 2017 12:40
[2017-03-27 18:04] LABS: BLOOD, URINE NEG (NEG); COMMENT (UR) CULT NOT INDICATED; CULTURE IF INDICATED CULT NOT INDICATED; GLUCOSE,URINE NEG (NEG); KETONE, URINE NEG (NEG); MUCUS URINE FEW /lpf (OCC); NITRITE,URINE NEG (NEG); URINE COLOR YELLOW (YELLW/STRAW)
[2017-03-27 19:07] LABS: MICRO ALBUMIN RANDOM URINE RAW 25.4 MG/L (0.0-30.0)
[2017-03-28] VITALS: BP 142/85; PULSE 87; RESP 20; TEMP 98.6; O2SAT 99
[2017-03-28 04:00] VITALS: BP 142/85; RESP 20; TEMP 98.7; O2SAT 97
[2017-03-28] MEDS: ceFAZolin 2 GM PREMIX 50 ML IV SCH (05:05)
[2017-03-28] MEDS: INSULIN NovoLIN REGULAR SUPPLEMENTAL SCALE SQ SCH (08:00)
[2017-03-28 08:20] VITALS: PULSE 73
[2017-03-28] MEDS: DOCUSATE SODIUM 50 MG/SENNA 8.6 MG TAB PO SCH (09:00)
[2017-03-28] MEDS: SODIUM CHLORIDE 0.9% FLUSH 10 ML FLUSH IV FLUSH SCH (09:23)
[2017-03-28] MEDS: metFORMIN HCL 500 MG TAB PO SCH (09:23)
[2017-03-28] MEDS: ENOXAPARIN SODIUM 40 MG/0.4 ML SYRINGE SQ SCH (09:24)
[2017-03-28] MEDS: ENALAPRIL MALEATE 10 MG TAB PO SCH (09:24)
[2017-03-28] MEDS: HYDROCHLOROTHIAZIDE 25 MG TAB PO SCH (09:24)
[2017-03-28 10:38] VITALS: BP 164/92; PULSE 76; RESP 18; TEMP 98.5; O2SAT 97
--- NOTE | 2017-03-28 10:38 | HHI.IDPN ---
Note Infectious Disease Note Patient feels well. Afebrile. Denies chills. Presented to the emergency department with body aches, nausea, vomiting and fevers. The patient reports that he had a scab on his right anterior wright and removed the scab and after that he developed red streaks beginning around the area of the scab and going up his leg on the right side. ALLERGIES NO KNOWN DRUG ALLERGIES. ANTIBIOTICS: Cefazolin. SOCIAL HISTORY No tobacco. Rare alcohol. No illicit drugs. FAMILY HISTORY Noncontributory. OBJECTIVE: Vital Signs Date Time Temp Pulse Resp B/P (MAP) Pulse Ox O2 Delivery O2 Flow Rate FiO2 03/27/17 08:00 98.6 80 18 150/100 (117) 98 Manual Cuff/Auscultation 03/27/17 00:00 99.1 81 20 138/92 (107) 97 03/26/17 20:20 107 03/26/17 20:00 99.9 87 20 130/80 (97) 97 03/26/17 18:31 150/90 (110) 03/26/17 16:00 99.4 87 20 166/116 (133) 99 Laboratory Tests Test 03/27/17 07:29 Blood Urea Nitrogen 14 MG/DL Creatinine 0.85 MG/DL Random Glucose 110 MG/DL Calcium Level 8.1 MG/DL Sodium Level 137 MEQ/L Potassium Level 3.9 MEQ/L Chloride Level 104 MEQ/L Carbon Dioxide Level 23.3 MEQ/L Anion Gap 10 MEQ/L Estimat Glomerular Filtration Rate 99 ML/MIN PHYSICAL EXAMINATION GENERAL: No acute distress. HEENT: No icterus. Oropharynx moist mucosa without lesions. NECK: Supple without adenopathy. LUNGS: Clear breath sounds. HEART: Regular rate and rhythm. EXTREMITIES: Right anterior with scabbed lesion and red purpuric discoloration around the scab area has faded. Macular erythematous streaks at the thighs are faded. (+) blisters at the R. tibia. Granular appearance. looks same. NEURO: No gross focal findings. PSYCHIATRIC: Calm and cooperative. IMPRESSION 1. Cellulitis of the right lower extremity. Improving. 2. Fever and body aches and pains on admission. RECOMMENDATIONS Discharge on PO Keflex 500mg QID X 7 days. I will sign off now. Dheeraj Quintero MD Mar 28, 2017 10:38
[2017-03-28] MEDS ORDERED: METF500 PO (11:07)
[2017-03-28] MEDS ORDERED: CEPH-460 PO (11:07)
[2017-03-28] MEDS ORDERED: HYDR25TA5 PO (11:11)
[2017-03-28] MEDS ORDERED: ENAL20TA PO (11:11)
--- NOTE | 2017-03-28 11:11 | HHI.DCPOC ---
Discharge Care Plan Diagnosis: (1) Diabetes (2) Sepsis (3) Cellulitis of right lower extremity (4) HTN (hypertension) Goals to Promote Your Health * To prevent worsening of your condition and complications * To maintain your health at the optimal level Directions to Meet Your Goals Take your medications as prescribed Follow your dietary instruction Follow activity as directed Keep your appointments as scheduled Take your immunizations and boosters as scheduled If your symptoms worsen call your PCP, if no PCP go to Urgent Care Center or Emergency Room Smoking is Dangerous to Your Health. Avoid second hand smoke Call the 24-hour hour crisis hotline for domestic abuse at Lauren Calvin MD Mar 28, 2017 11:11
--- NOTE | 2017-03-28 11:12 | HHI.DS ---
Discharge Summary Admission Date Mar 25, 2017 at 03:49 Admitting Diagnosis Sepsis, cellulitis (1) Sepsis ICD Code: A41.9 - Sepsis, unspecified organism (2) Cellulitis of right lower extremity ICD Code: L03.115 - Cellulitis of right lower limb (3) Hypokalemia ICD Code: E87.6 - Hypokalemia (4) Dehydration ICD Code: E86.0 - Dehydration (5) HTN (hypertension) ICD Code: I10 - Essential (primary) hypertension Brief History - From Admission This is a 41-year-old male with no significant PMH who presented to the ER with complaints of right lower extremity redness and pain for approx 1wk. 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 Reports subjective fever, chills in addition to occasional nausea/vomiting. On arrival, BP 13/116, HR 109 , O2 sat 99% on RA, Temp 101.6. BP currently 144/101, HR 96. WBC normal however elevated neutrophil count. K+ 3.1. GFR 64. CXR with no infiltrate noted, 6 mm noncalcified nodule mid right lung with recommendation for CT. CT Chest w/ calcified granuloma. S/p Blood Culture and Clinda IV in ER. CBC/BMP: 03/26/17 0556 03/27/17 0729 Significant Findings Laboratory Tests Test 03/26/17 05:56 03/27/17 07:29 03/27/17 15:30 Neutrophils (%) (Auto) 73.2 % (16.0-70.0) Monocytes (%) (Auto) 11.4 % (0.0-8.0) Monocytes # (Auto) 1.0 TH/MM3 (0-0.9) Random Glucose 190 MG/DL (74-106) 110 MG/DL (74-106) Albumin 2.9 GM/DL (3.4-5.0) Calcium Level 8.4 MG/DL (8.5-10.1) 8.1 MG/DL (8.5-10.1) Aspartate Amino Transf (AST/SGOT) 70 U/L (15-37) Sodium Level 134 MEQ/L (136-145) Potassium Level 3.4 MEQ/L (3.5-5.1) Estimat Glomerular Filtration Rate 71 ML/MIN (>89) Triglycerides Level 182 MG/DL (42-150) HDL Cholesterol 25.6 MG/DL (40.0-60.0) Urine Mucus FEW /lpf (OCC) Urine Microalbumin/Creatinine Ratio 43 MG/G CRE (0-30) PE at Discharge awake and alert, oriented x 3 anicteric lungs clear regular rhythm HR- 82 abdomen- flabby soft Right LE - marked decrease in erythema and swelling today + small inguinal lymphadenopathy no induration felt on the thigh and leg very good ++ pulses moves right LE with good range of motion Pt Condition on Discharge: Good Discharge Disposition: Discharge Home Discharge Instructions DIET: Follow Instructions for: Diabetic Diet Activities you can perform: Regular-No Restrictions Other Activity Instructions: Keep right leg elevated Lauren Calvin MD Mar 28, 2017 11:12
== END 2017-03-28 12:23 | disposition home or self-care (01) | DRG 872 ==
LOC: NEPC 21:45 → NEDA 03-25 03:49 → N05A 03-25 04:54
PROVIDERS: ADMIT Family Medicine; ATTEND Family Medicine
DX: A41.9 Sepsis, unspecified organism (principal); L03.115 Cellulitis of right lower limb; E11.65 Type 2 diabetes mellitus with hyperglycemia; I10 Essential (primary) hypertension; E87.6 Hypokalemia; E86.0 Dehydration; E66.9 Obesity, unspecified; R91.1 Solitary pulmonary nodule; Z68.35 Body mass index [BMI] 35.0-35.9, adult; Z79.84 Long term (current) use of oral hypoglycemic drugs; Z82.49 Family history of ischemic heart disease and other diseases of the circulatory system
CPT/HCPCS: 71020; 71250; 76937; 80048; 80053; 80061; 81001; 82043; 82948; 83036; 83605; 85025; 87040; 87804; 93005; 96361; 96365; 96375; J0690; J0692; J1650; J1885; J2405; J3370; J7030; J7040